=== PATIENT | male | born 1985 | race Caucasian/White ===

== ENCOUNTER 2025-04-05 21:43 | Emergency (ER) | payer OTHER ==
[~2025-04-05] VITALS: Ht 180.3 cm; Wt 86.2 kg
[2025-04-05 22:16] VITALS: BP 123/79; TEMP 98.2; O2SAT 98
== END 2025-04-05 22:16 ==
LOC: ER 21:45
DX: M54.9 Dorsalgia, unspecified (principal); Z00.00 Encounter for general adult medical examination without abnormal findings